=== PATIENT | female | born 1960 | race Caucasian/White ===

== ENCOUNTER 2018-10-24 14:14 | Emergency (ER) | payer MEDICAID ==
[~2018-10-24] VITALS: Ht 167.6 cm; Wt 64.5 kg
[2018-10-24 14:22] VITALS: Ht 167.6 cm; Wt 64.5 kg
[2018-10-24 15:33] LABS: APPEARANCE CLEAR (CLEAR); COLOR YELLOW (YELLOW); GLUCOSE NEGATIVE (NEGATIVE); NITRITE NEGATIVE (NEGATIVE); PROTEIN NEGATIVE (NEGATIVE)
[2018-10-24 15:34] LABS: BILIRUBIN NEGATIVE (NEGATIVE); KETONE NEGATIVE (NEGATIVE); UROBILINOGEN NORMAL (NORMAL)
[2018-10-24 15:35] LABS: BACTERIA FEW /hpf (NONE SEEN); RED CELLS - URINE >50 /hpf (0-5); WHITE CELLS - URINE 0-5 /hpf (0-5)
[2018-10-24 16:06] LABS: BASOPHILS 0.2 % (0-2); EOSINOPHILS 0.4 % (0-7); HEMATOCRIT 37.6 % (36.0-48.0); HEMOGLOBIN 13.4 g/dL (12-16); IMMATURE GRANULOCYTES 0.3 % (0-5); LYMPHOCYTES 24.7 % (15-50); MCHC 35.6 g/dL (31.0-37.0); MCV 84.3 fL (80.0-100.0); MEAN PLATELET VOLUME 9.3 fL (7.4-10.4); MONOCYTES 3.9 % (2-11); NEUTROPHILS 70.5 % (40-80); PLATELET COUNT 341 10x3/uL (130-400); RBC 4.46 10x6/uL (4.00-5.40); RDW 12.7 % (11.5-14.5); WBC 11.2 10x3/uL (4.8-10.8)
[2018-10-24 16:23] LABS: ALBUMIN 3.6 g/dL (3.4-5.0); ALKALINE PHOSPHATASE 133 U/L (46-116); ALT (SGPT) 53 U/L (10-68); BILIRUBIN - TOTAL 0.27 mg/dL (0.2-1.3); CALC OSMOLALITY 278 mosm/kg (275-300); CALCIUM 9.1 mg/dL (8.5-10.1); CHLORIDE - SERUM 104 mmol/L (98-107); CREATININE - SERUM 0.8 mg/dL (0.6-1.3); GLUCOSE 112 mg/dL (74-106); POTASSIUM - SERUM 3.8 mmol/L (3.5-5.1); PROTEIN - SERUM 7.4 g/dL (6.4-8.2); SODIUM 140 mmol/L (136-145); UREA NITROGEN 11 mg/dL (7-18); eGFR NON AFRICAN AMERICAN 78 mL/min (90-120)
[2018-10-24] MEDS ORDERED: TORADOL10 MG PO (16:52)
[2018-10-24] MEDS ORDERED: FLOMAX0.4 MG PO (16:52)
[2018-10-24 17:32] VITALS: BP 160/91
== END 2018-10-24 17:33 | disposition home or self-care (01) ==
LOC: D.ER 14:14
PROVIDERS: Emergency Medicine
DX: N20.0 Calculus of kidney (principal); R31.9 Hematuria, unspecified

== ENCOUNTER 2019-09-05 18:29 | Observation (INO) | payer MEDICAID ==
[~2019-09-05] VITALS: Ht 152.4 cm; Wt 67.3 kg
[~2019-09-05 18:29] MED LIST: FLOMAX0.4 MG PO; TORADOL10 MG PO
[2019-09-05 19:09] LABS: BASOPHILS 0.3 % (0-2); EOSINOPHILS 1.1 % (0-7); HEMATOCRIT 39.9 % (36.0-48.0); HEMOGLOBIN 13.8 g/dL (12-16); IMMATURE GRANULOCYTES 0.2 % (0-5); LYMPHOCYTES 56.4 % (15-50); MCH 29.9 pg (26.0-34.0); MCHC 34.6 g/dL (31.0-37.0); MCV 86.4 fL (80.0-100.0); MEAN PLATELET VOLUME 9.3 fL (7.4-10.4); MONOCYTES 5.6 % (2-11); NEUTROPHILS 36.4 % (40-80); PLATELET COUNT 341 10x3/uL (130-400); RBC 4.62 10x6/uL (4.00-5.40); RDW 12.6 % (11.5-14.5); WBC 10.5 10x3/uL (4.8-10.8)
[2019-09-05 19:22] VITALS: BP 191/108
[2019-09-05 19:22] LABS: CALC OSMOLALITY 278 mosm/kg (275-300); CALCIUM 9.1 mg/dL (8.5-10.1); CARBON DIOXIDE 26.5 mmol/L (21.0-32.0); CHLORIDE - SERUM 105 mmol/L (98-107); CREATININE - SERUM 0.9 mg/dL (0.6-1.3); GLUCOSE 101 mg/dL (74-106); POTASSIUM - SERUM 3.8 mmol/L (3.5-5.1); SODIUM 140 mmol/L (136-145); UREA NITROGEN 13 mg/dL (7-18); eGFR NON AFRICAN AMERICAN 68 mL/min (90-120)
[2019-09-05 19:30] VITALS: BP 183/108
[2019-09-05 19:33] LABS: APTT 34.7 SECONDS (22.8-39.4)
[2019-09-05 19:34] LABS: INR 0.96 (0.85-1.17); PROTIME 12.8 SECONDS (11.6-15.0)
[2019-09-05 19:39] LABS: ALBUMIN 3.8 g/dL (3.4-5.0); ALKALINE PHOSPHATASE 116 U/L (30-120); ALT (SGPT) 27 U/L (10-68); BILIRUBIN - TOTAL 0.35 mg/dL (0.2-1.3); CKMB 0.8 U/L (0.0-3.6); CREATINE KINASE 69 UL (21-215); PROTEIN - SERUM 6.9 g/dL (6.4-8.2); TROPONIN-I < 0.017 ng/mL (0.000-0.060)
[2019-09-05 22:03] VITALS: Ht 152.4 cm; Wt 67.3 kg
[2019-09-06] VITALS: BP 160/92
--- NOTE | 2019-09-06 01:50 | NUR ---
PATIENT RESTING COMFORTABLY IN BED. RESPIRATIONS ARE EVEN AND UNLABORED. NO S/S OF DISTRESS. NO C/O PAINS. CALL LIGHT WITHIN REACH. WILL CPOC.
[2019-09-06 01:57] LABS: BASOPHILS 0.3 % (0-2); EOSINOPHILS 1.5 % (0-7); HEMATOCRIT 38.5 % (36.0-48.0); HEMOGLOBIN 13.3 g/dL (12-16); IMMATURE GRANULOCYTES 0.3 % (0-5); LYMPHOCYTES 55.5 % (15-50); MCH 30.2 pg (26.0-34.0); MCHC 34.5 g/dL (31.0-37.0); MCV 87.3 fL (80.0-100.0); MEAN PLATELET VOLUME 9.3 fL (7.4-10.4); MONOCYTES 6.2 % (2-11); NEUTROPHILS 36.2 % (40-80); PLATELET COUNT 321 10x3/uL (130-400); RBC 4.41 10x6/uL (4.00-5.40); RDW 12.6 % (11.5-14.5); WBC 10.7 10x3/uL (4.8-10.8)
[2019-09-06 02:23] LABS: ALBUMIN 3.4 g/dL (3.4-5.0); ALKALINE PHOSPHATASE 109 U/L (30-120); BILIRUBIN - TOTAL 0.12 mg/dL (0.2-1.3); CALC OSMOLALITY 279 mosm/kg (275-300); CALCIUM 8.5 mg/dL (8.5-10.1); CARBON DIOXIDE 24.4 mmol/L (21.0-32.0); CHLORIDE - SERUM 105 mmol/L (98-107); CKMB 0.8 U/L (0.0-3.6); CREATINE KINASE 58 UL (21-215); CREATININE - SERUM 0.9 mg/dL (0.6-1.3); GLUCOSE 115 mg/dL (74-106); POTASSIUM - SERUM 3.6 mmol/L (3.5-5.1); PROTEIN - SERUM 6.3 g/dL (6.4-8.2); SODIUM 139 mmol/L (136-145); TROPONIN-I < 0.017 ng/mL (0.000-0.060); UREA NITROGEN 15 mg/dL (7-18); eGFR NON AFRICAN AMERICAN 68 mL/min (90-120)
[2019-09-06 02:25] LABS: ALT (SGPT) 20 U/L (10-68)
[2019-09-06 04:00] VITALS: BP 143/92
--- NOTE | 2019-09-06 07:10 | NUR ---
REPORT RECEIVED FROM OUTSIDE LABORER AND PATIENT CARE ASSUMED. PATIENT LAYING IN BED ON BACK AWAKE, ALERT AND ORIENTED X 2 . PATIENT IS STABLE AND VSS. PATIENT DENIES ANY NEEDS OR PAIN. PATIENT NPO AWAITING CARDIOLOGY CONSULT. WILL CONTINUE WITH PLAN OF CARE. SR UP X 2 BEDE IN LOW POSTION AND CALL LIGHT IN REACH.
[2019-09-06 08:41] LABS: CKMB 0.6 U/L (0.0-3.6); CREATINE KINASE 51 UL (21-215)
[2019-09-06 08:42] LABS: TROPONIN-I < 0.017 ng/mL (0.000-0.060)
[2019-09-06 09:25] VITALS: BP 140/88
--- NOTE | 2019-09-06 09:36 | NUR ---
DR BARTHOLOMEW IN ROOM. NEW ORDER RECEIVED FOR A LEXISCAN. WILL CONTINUE WITH PLAN OF CARE AND PATIENT TO REMAIN NPO.
--- NOTE | 2019-09-06 10:04 | NUR ---
SPENT SEVERAL MINUTES IN ROOM WITH PATIENT ANSWERING QUESTIONS AND GIVING REASSURANCE TO PATIENT SATISFACTION. PATIENT HAVING ECHO CARDIOGRAM NOW.
--- NOTE | 2019-09-06 10:40 | NUR ---
PATIENT IS STABLE AND VSS. PATIENT TO STRESS TEST LAB VIA WC ACCOMPANIED BY STRESS TEST PERSONNEL.
--- NOTE | 2019-09-06 11:50 | NUR ---
PATIENT RETURNED TO ROOM FROM STRESS TEST. PATIENT IS STABLE AND VSS. PATIENT COMPLAINS OF HEADACHE. MEDICATED PER MAR WITH NAPROXEN. FAMILY AT BS. WILL CONTINUE TO MONITOR. SR UPX 2 BED IN LOW POSITION AND CALL LIGHT IN REACH.
[2019-09-06 14:28] LABS: CKMB 0.7 U/L (0.0-3.6); CREATINE KINASE 57 UL (21-215); TROPONIN-I < 0.017 ng/mL (0.000-0.060)
--- NOTE | 2019-09-06 15:52 | NUR ---
PATIENT IS STABLE AND VSS. PATIENT DENIES ANY NEEDS OR PAIN. PATIENT RESTING COMFORTABLY AND VISITNG WITH FAMILY. WILL CONTINUE TO MONITOR. SR UP X 2 BED IN LOW POSITION AND CALL LIGHT IN REACH.
--- NOTE | 2019-09-06 16:42 | EC ---
PATIENT:LILLIAN PUENTES DATE OF SERVICE: 09/05/19 SEX: F MEDICAL RECORD: [id number] DATE OF : 62 LOCATION:D. D.211 AGE OF PATIENT: 58 ADMISSION DATE: 09/05/19 REFERRING PHYSICIAN: INTERPRETING PHYSICIAN: RICKY QUINONES MD ECHOCARDIOGRAM REPORT ECHO CHARGES 4 ECHO COMPLETE Date: 09/06/19 CLINICAL DIAGNOSIS: CP, SOB, DIZZINESS ECHOCARDIOGRAPHIC MEASUREMENTS (adult normal given) AC root (d.<3.7cm) 2.5 cm LV Septum d (<1.2 cm> 0.7 cm Valve Excursion 1.6 cm LV Septum (systole) 1.0 cm Left Atria (s.<4.0cm> 3.1 cm LVPW d(<1.2cm) 0.8 cm RV (d.<2.3cm) 2.0 cm LVPW (sytole) 0.9 cm LV diastole(<5.6CM) 4.4 cm MV E-F(>70mm/sec) cm LV systole 3.3 cm LVOT Diameter 1.8 cm MV exc.(>10mm) cm Est.ejection fraction (50-75%) % DOPPLER: LVIT cm/sec A 111 cm/sec E 80 cm/sec LA cm/sec RVSP 34.5 mmHg LVOT 97 cm/sec AOP1/2T m/s Asc. Ao 147 cm/sec RVOT 72 cm/sec RA cm/sec PA 97 cm/sec AV Gradient Peak 8.6 mmHg AV Mean 4.4 mmHg AV Area 1.7 cm MV Gradient Peak 5.7 mmHg MV Mean 3.5 mmHg MV Area cm COMMENTS: Scraper Hand: Elian HYATT Ladle Repairman: 1 Dr. Quinones TAPE# PACS Pericardial Effusion N DATE OF SERVICE: ECHOCARDIOGRAM FINDINGS: 1. Left ventricular chamber size is within normal limits. Left ventricular systolic function is normal at 55%. 2. Left atrium, right atrium, and right ventricular sizes are within normal limits. 3. Valvular structures have normal structure and motion. ECHOCARDIOGRAM REPORT [id number] LILLIAN PUENTES 4. Doppler interrogation reveals no significant valvular insufficiency or stenosis. 5. No evidence of pericardial effusion or left ventricular thrombus. TRANSINT:[id number] Voice Confirmation ID: [id number] DOCUMENT ID: [id number] RICKY QUINONES MD at 1642 CC: [id number] DICTATION DATE: 09/06/19 1144 ELECTRIC MOTOR CONTROLS ASSEMBLER: 09/06/19 1224 ADM IN [place] [id number] [place] [id number]
--- NOTE | 2019-09-06 16:42 | HP ---
PATIENT: LILLIAN POWERS MEDICAL RECORD: [id number] ACCOUNT: [id number] LOCATION:[address] : 62 ADMISSION DATE: 09/05/19 PCP: No PCP HISTORY AND PHYSICAL EXAMINATION ADMITTING DIAGNOSES: 1. Chest pain. 2. Hypertension. HISTORY OF PRESENT ILLNESS: Mrs. Powers presents with chest pain. She had a severe episode of chest pain, Monday night. It was very classic anginal chest pain. She thought she had a heart attack. It was an elephant sitting on her chest that lasted for many hours Monday night. She had minor recurrences last night, she began having that again. She presented to the Emergency Room. Her troponin is normal. Her EKG; however, does suggest lateral ischemia as well as suggest LVH. She is markedly hypertensive. She has not been told she is hypertensive in the past and not on anything for hypertension. PHYSICAL EXAMINATION: CONSTITUTIONAL/GENERAL APPEARANCE: Well nourished, well developed, appears stated age. EYES: Lids and conjunctivae noninjected. No discharge. No pallor. ENT: Lips within normal limit. No cyanosis. No pallor. NECK: Carotid arteries, bilateral normal upstroke. No bruits. No thrills. No jugular venous pressure or distention. CERVICAL LYMPH NODES: Nontender. Nonenlarged. THYROID: Not enlarged. No nodules. CARDIOVASCULAR: Precordial exam, nondisplaced. No heaves or pericardial thrills. Rate and rhythm, regular. Heart sounds, normal S1, normal S2. No S3, no gallop, no rub. Systolic murmur, not heard. Diastolic murmur, not heard. RESPIRATORY: Respiratory effort, unlabored. Normal curvature. No thoracic deformity. No chest wall tenderness. Percussion, resonant. Auscultation, clear. No wheezes, no rales, no rhonchi. ABDOMEN: Soft, nondistended, nontender. No abdominal pain, no vomiting and normal appetite. MUSCULOSKELETAL: No joint tenderness, normal gait, normal tone. SKIN: Warm and dry. OVERALL IMPRESSION: Chest pain compatible with angina with abnormal ECG and out of control hypertension. We will start her on a beta daniella, but risk stratify with Lexiscan. Further care depends upon findings of the Lexiscan. TRANSINT:[id number] Voice Confirmation ID: [id number] DOCUMENT ID: [id number] RICKY BARTHOLOMEW MD at 1642 CC: [id number] DICTATION DATE: 09/06/19906 MEDICAL INSURANCE CODING SPECIALIST: 09/06/19 0938 ADM IN [facility] [address] [place] [id number]
--- NOTE | 2019-09-06 19:22 | NUR ---
PATIENT READY FOR DISCHARGE. PATIENT IV REMOVED AND TELEMETRY RETURNED TO EDUCATION DIRECTOR. PATIENT ESCORTED OFF FLOOR BY STAFF.
--- NOTE | 2019-09-09 09:07 | MORECARE ---
CASE MANAGEMENT DISCHARGE SUMMARY PATIENT: LILLIAN PUENTES UNIT: [id number] ADM DATE: 09/05/19 AGE: 58 : 62 SEX: F ROOM/BED: D.2446 AUTHOR: ROXANE KENDRICK PHYSICIAN: REFERRING PHYSICIAN: RICKY BARTHOLOMEW MD DATE OF SERVICE: 09/09/19 Discharge Plan Patient Name: LILLIAN PUENTES [facility] [facility] 1960 Planned Disposition: Home Anticipated Discharge Date: 09/06/19 Discharge Date: 09/06/2019 Expected LOS: 1 Initial Reviewer: [email or web address] Initial Review Date: 09/09/2019 Generated: 09/09/19 10:07 am Patient Name: LILLIAN PUENTES Page [phone] at 0907 All edits/amendments must be made on the electronic document DICTATION DATE: 09/09/19906 SEO INTERN: MAGDALENO 09/09/19906 RPT#: [id number] DC DATE:09/06/19 STATUS: DIS IN [facility] [address] [facility] [place] [address] END OF REPORT
== END 2019-09-06 19:36 | disposition home or self-care (01) ==
LOC: D.ER 18:29 → D.M2 19:33 → OBSVTIME 19:33 → D.M2 19:33
PROVIDERS: Emergency Medicine; Family Medicine; ADMIT Internal Medicine Interventional Cardiology; ATTEND Internal Medicine Interventional Cardiology
DX: R07.9 Chest pain, unspecified (principal); R94.31 Abnormal electrocardiogram [ECG] [EKG]; I10 Essential (primary) hypertension; K21.9 Gastro-esophageal reflux disease without esophagitis